=== PATIENT | female | born 1970 | race Caucasian/White ===

== ENCOUNTER 2017-01-02 15:59 | Emergency (ER) ==
[2017-01-02 16:04] VITALS: BP 164/104; TEMP 99.6; BMI 40.6
--- NOTE | 2017-01-02 16:24 | ED.PDOC ---
General ED Provider: Dr. DINORA DERAS JR Chief Complaint: Tooth Problem Stated Complaint: onset lower tooth pain 2 days ago--tried to get into dentist but schedule is full--has sl swelling to rt side of face. [ End ]99.2 112 20 96 % 164/104 10 Time Seen by Physician: 16:24 Mode of Arrival: Walk-In Information Source: Patient Exam Limitations: No limitations Primary Care Provider: ORVILLE HALEY Nursing and Triage Documentation Reviewed and Agree: No EENT Complaint Exam - Dental/Oral Complaint/Exam Mechanism of Injury: No known trauma Onset/Duration: 2d Symptoms Are: Worse Timing: Constant Initial Severity: Moderate Current Severity: Moderate Character: Reports: Aching, Throbbing Aggravating: Reports: Heat, Cold, Chewing, Exertion Alleviating: Reports: None Associated Signs and Symptoms: Reports: Swelling, Discharge, Foul odor, Foul taste in mouth Related History: Reports: Similar episode, Third molars present Tooth Findings: Present: Gross decay, Gross caries (right inferior molars and second premolar eroded on lingual surface with discherge, + swelling to mandible ) Cervical Lymphadenopathy Present: No Facial Swelling Present: Yes Bleeding Present: No Uvula Midline: Yes Trismus Present: No Review of Systems - Review Of Systems Constitutional: Reports: Fever, Malaise Eyes: Reports: No symptoms Ears, Nose, Mouth, Throat: Reports: Mouth pain Respiratory: Reports: No symptoms Cardiac: Reports: No symptoms GI: Reports: No symptoms : Reports: No symptoms Musculoskeletal: Reports: No symptoms Skin: Reports: No symptoms Neurological: Reports: No symptoms Endocrine: Reports: No symptoms Hematologic/Lymphatic: Reports: No symptoms All Other Systems: Other Past Medical History - Past Medical History Endocrine: Reports: None Cardiovascular: Reports: None Respiratory: Reports: PE (2013 left lung PE no knowm cause (2014) now off xarelto) Hematological: Reports: None Gastrointestinal: Reports: None Genitourinary: Reports: None Neuro/Psych: Reports: Seizure, Anxiety, Depression Musculoskeletal: Reports: None Cancer: Reports: None Last Menstrual Period: now Other Pertinent Past Medical History: v1D deff - Surgical History General Surgical History: Reports: (x2), Cholecystectomy, Other ( tumors removed from colon ), Unknown - Family History Family History: Reports: Unknown - Social History Smoking Status: Current every day smoker, Heavy tobacco smoker Hx Substance Use: No Alcohol Screening: None Physical Exam - Physical Exam Appearance: Ill-appearing, Obese Pain Distress: Moderate ENT: Ears normal, Nose normal Neck: Supple Respiratory: Airway patent, Breath sounds clear, Breath sounds equal, Respirations nonlabored Critical Care Note - Critical Care Note Total Time (mins): 0 Course - Course Vital Signs: Temp Pulse Resp BP Pulse Ox 01/02/17 15:59 99.6 F 112 H 20 164/104 H 96 Departure - Departure Time of Disposition: 16:52 Disposition: HOME SELF-CARE Discharge Problem: Dental abscess Instructions: Dental Abscess (ED) Condition: Fair Pt referred to PMD for follow-up: Yes (dentist) Additional Instructions: naprosyn (or advil or aleve for pain) beni VK antibiotic until gone may try dental wax on open tender area follow up with dentist as soon as possible call PMD in morning inform of er visit Prescriptions: Hydrocodone Bit/Acetaminophen [[place] 5-325] 1 - 2 tab PO Q6HR PRN #12 tablet PRN Reason: pain Naproxen [Naprosyn] 500 mg PO Q12HR PRN #30 tablet PRN Reason: PAIN Penicillin V Potassium 500 mg PO QID #28 tablet Allergies/Adverse Reactions: Allergies No Known Allergies Allergy (Verified 01/02/17 16:05) Home Medications: Ambulatory Orders Alprazolam [Xanax] 0.5 mg PO TID 01/23/14 Citalopram Hydrobromide [Citalopram HBr] 10 mg PO DAILY 01/23/14 Hydrochlorothiazide 12.5 mg PO DAILY 01/23/14 Rivaroxaban [Xarelto] 20 mg PO DAILY 01/23/14 Cyclobenzaprine HCl [Flexeril] 20 mg PO DAILY 01/02/17 Gabapentin 300 mg PO TID 01/02/17 Hydrocodone Bit/Acetaminophen [[place] 5-325] 1 - 2 tab PO Q6HR PRN #12 tablet Naproxen [Naprosyn] 500 mg PO Q12HR PRN #30 tablet 01/02/17 Penicillin V Potassium 500 mg PO QID #28 tablet 01/02/17
== END 2017-01-02 17:02 | disposition home or self-care (01) ==
LOC: ED 15:59
DX: K04.7 Periapical abscess without sinus (principal); K02.7 Dental root caries; F17.210 Nicotine dependence, cigarettes, uncomplicated
CPT/HCPCS: 99282

== ENCOUNTER 2017-01-19 10:07 | Outpatient (CLI) ==
[2017-01-19 10:23] LABS: BASOPHILS # (AUTO) 0.1 K/uL (0-0.2); BASOPHILS % (AUTO) 1.2 % (0.0-3.0); EOSINOPHILS # (AUTO) 0.1 K/ul (0.0-0.7); EOSINOPHILS % (AUTO) 1.3 % (0.0-7.0); HEMATOCRIT 40.5 % (37.0-47.0); HEMOGLOBIN 13.3 g/dl (12.0-16.0); IMMATURE GRANULOCYTE % (AUTO) 0.4 % (0.0-5.0); LYMPHOCYTES # (AUTO) 2.3 K/uL (0.60-3.4); LYMPHOCYTES % (AUTO) 26.7 (10.0-50.0); MEAN CORPUSCULAR HEMOGLOBIN 28.7 pg (27.0-31.0); MEAN CORPUSCULAR HGB CONC 32.8 (31.8-35.4); MEAN CORPUSCULAR VOLUME 87.3 fl (81.0-99.0); MONOCYTES # (AUTO) 0.4 K/uL (0.4-2.0); MONOCYTES % (AUTO) 4.9 (0-10); NEUTROPHILS # (AUTO) 5.6 K/ul (2.0-6.9); NEUTROPHILS % (AUTO) 65.5; PLATELET COUNT 347 10^3/uL (140-440); RED BLOOD COUNT 4.64 10^6/ul (4.20-5.40); WHITE BLOOD COUNT 8.53 K/ul (4.6-10.2)
[2017-01-19 11:06] LABS: ALBUMIN 3.3 g/dL (3.4-5.0); ALBUMIN/GLOBULIN RATIO 0.83; BILIRUBIN,TOTAL 0.43 mg/dL (0.00-1.20); BUN/CREATININE RATIO 11.68; CALCIUM 9.1 mg/dL (8.2-10.2); CREATININE 0.77 mg/dL (0.60-1.30); TOTAL PROTEIN 7.3 g/dL (6.4-8.2)
== END 2017-01-19 10:08 | disposition home or self-care (01) ==
LOC: LAB 10:07
PROVIDERS: ATTEND Emergency Medicine
DX: E78.5 Hyperlipidemia, unspecified (principal); E66.9 Obesity, unspecified; F41.1 Generalized anxiety disorder
CPT/HCPCS: 36415; 80053; 80061; 83036; 84443; 85025

== ENCOUNTER 2018-01-17 12:36 | Outpatient (CLI) | END 2018-01-17 12:37 | disposition home or self-care (01) | LOC: LAB 12:36 | PROVIDERS: ATTEND Internal Medicine | DX: E78.5 Hyperlipidemia, unspecified (principal); E66.9 Obesity, unspecified | CPT/HCPCS: 36415; 80053; 80061; 82306; 83036; 84443; 85025 ==

== ENCOUNTER 2018-04-11 10:00 | Outpatient (RCR) ==
--- NOTE | 2018-04-02 09:09 | RS.OPPTEV2 ---
Date of Note: 03/29/18 Visit #: 1 Date of Evaluation: 03/29/18 Payer Source: Medicaid Surgery Performed?: No Treatment Diagnosis: brachial plexus injury, cervical DDD, facet arthropathy, R shld pain History of Condition/Mechanism of Injury:: pt suffered injury at work at [employer] approx 2 yrs ago throwing a large bag of garbage over head and has been unable to work since. Prior Level of Function.....Patient was independent with: ADL's, Caregiving, Ambulation/Mobility, Community Integration/Access Functional Limitations: Sleep, Reaching, Pushing, Pulling, Lifting Current Subjective/complaints:: pt states that since her insurance has changed that is why they are requiring her to try therapy again. pt states she doesn't think the therapy will help. Treatment Side (optional): N/A *Precautions: n/a Medical History Medical History Comments:: brachial plexus injury Surgical History: Cholecystectomy, Smoking Status: Current every day smoker Diagnostic Testing/Imaging:: No new imaging results. Hx Home Medications: hydrocholorothiazide, xanax, flexaril, cymbalta, topamax Patient's Goals: decrease pain Pain Assessment - Pain Description Pain Location: cervical spine. R scapula/shld Current Pain Intensity: 6/10 Worst Pain Intensity: 8/10 Functional Outcome Measure Neck Disability Index: 25 (%) - G Codes & Severity Modifier G Codes & Modifier: n/a Source of G Code score: n/a Observation - Observation Posture: Forward Head, Rounded Shoulders, Increased Thoracic Kyphosis, Decreased Lumbar Lordosis Handedness: Right Gait - Gait Pattern General Gait Pattern Observation: No Deviations/Normal General Range of Motion: ROM BUE and BLE WFL's Muscle Strength: LUE 4+/5. BLE 5/5 - ROM Cervical Spine Range of Motion Limitations: Soft Tissue Tightness, Muscle Weakness, Pain Comments: ROM WFL's with pain, pain increases with R rotation and R lat bending. - Strength Comments: pt with increased pain with manual cervical traction with radicular symptoms RUE, pain also with cervical compression with radiation into RUE. - Special Tests Foraminal Distraction: Positive Foraminal Compression: Positive Right Shoulder ROM: Right WFL's - Right Shoulder Strength Right Shoulder Flexion: 4- Good- Right Shoulder Extension: 3+ Fair+ Right Shoulder Abduction: 4- Good- Right Shoulder Adduction: 4- Good- Right Shoulder External Rotation: 4- Good- - Special Tests Shoulder Speed's Sign Test: Positive Right Palpation Palpation Findings: Trigger Point (trigger points noted in R medial border and spine of scapula) Sensation - Sensation Right Upper Extremity: Intact/Normal Left Upper Extremity: Intact/Normal Right Lower Extremity: Intact/Normal Left Lower Extremity: Intact/Normal Balance - Sitting Balance Static Sitting Balance: Normal Dynamic Sitting Balance: Normal - Standing Balance Static Standing Balance: Normal Dynamic Standing Balance: Normal - Treatment Modality: Ultrasound Parameters/Method Applied: 1.5w/cm2 x 10 mins Treatment Area: R scapula and upper trap Patient Position: Sitting Interventions - Exercise/Activities/Manual Therapy Exercises/Activities: pt performed scapular retraction, corner stretches Manual Therapy: n/a HOME EXERCISE PROGRAM: pt given written HEP including corner stretches, shld shrugs, scapular retraction - Charges Timed Code Treatment Minutes: 47 Total Treatment Time: 60 Procedures billed for this date of service:: eval low, ultrasound EVALUATION COMPLEXITY LEVEL EVALUATION COMPLEXITY LEVEL: HISTORY: Low (brachial plexus injury, cervical DDD) , EXAM OF BODY SYSTEMS: Medium (pain, strength, ROM, posture), CLINICAL PRESENTATION: Low, CLINICAL DECISION MAKING: Medium Assessment Assessment: pt presents with cervical pain with radicular symptoms into RUE, pt also presents with scapular pain on R with trigger points as well as decreased scapular mobility due to muscle tightness and pain. Patient Education: Home Exercise Program, Education of Plan of Care Rehab Potential: Good Short Term Goals Goal #1: pt rate pain < 5/10 with activity Goal to be met by: 04/12/18 Goal #2: pt independent with intial HEP Goal to be met by: 04/12/18 Goal #3: pt with decreased pain with scapular ROM Goal to be met by: 04/12/18 Acetylene Plant Operator Goals Goal #1: pt rate pain <4/10 with activity, with decreased radicular symptoms Goal to be met by: 04/26/18 Goal #2: pt with report decreased difficulty with hammerer helper Goal to be met by: 04/26/18 Goal #3: pt report ability to perform ADL's without increased pain. Goal to be met by: 04/26/18 Goal #4: Cervical ROM WFL's with decreased pain Goal to be met by: 04/26/18 Plan - Treatment to be Provided Procedures: Therapeutic Exercises, Neuromuscular Rehab, Manual Therapy, Massage , Patient Education Modalities: Electrical Stimulation, Ultrasound/Phonophoresis, Class IV Laser, Cryotherapy, Hot Packs - Treatment Plan Frequency: 2 X week Duration: 6 weeks ORDER # VISITS AND/OR THROUGH DATE: 04/26/18 - Treatment Code (1) Brachial plexus injury, right Code(s): S14.3XXA - INJURY OF BRACHIAL PLEXUS, INITIAL ENCOUNTER Qualifiers: Encounter type: initial encounter Qualified Code(s): S14.3XXA - Injury of brachial plexus, initial encounter (2) Cervical pain Code(s): M54.2 - CERVICALGIA (3) Pain of right scapula Code(s): M89.8X1 - OTHER SPECIFIED DISORDERS OF BONE, SHOULDER (4) Muscle tightness Code(s): M62.89 - OTHER SPECIFIED DISORDERS OF MUSCLE
--- NOTE | 2018-04-02 11:41 | RS.CXNS ---
Date of scheduled appointment: 04/02/18 Type: No Show
--- NOTE | 2018-04-04 14:44 | RS.OPPTDN ---
Subjective Date of Note: 04/04/18 Visit #: 2 Date of Evaluation: 03/29/18 Payer Source: Medicaid Treatment Diagnosis: brachial plexus injury, cervical DDD, facet arthropathy, R shld pain Current Subjective/complaints:: Patient reports difficulty reaching with daily activities due to right scapular pain. *Precautions: n/a Pain Assessment - Pain Description Pain Location: Right scapular region and upper flank Current Pain Intensity: 5-6/10 - Treatment Modality: Ultrasound Parameters/Method Applied: [id number] at 1.5w/cm2 to the mid, distal, and lateral borders of the right scapula prior to EX. Patient Position: Sitting - Heat/Cryotherapy Treatment: Hot Pack ([id number] to the right scapula and shoulder prior to US. Patient in supine. ) Interventions - Exercise/Activities/Manual Therapy Exercises/Activities: Asssited mid scap stretch with UE across midline. Isometrics for right shoulder flex, add, and ext. AA flexion and abduction. Scapular retraction and shoulder shrugs. Total minutes of Exercise: 14mins Manual Therapy: n/a HOME EXERCISE PROGRAM: pt given written HEP including corner stretches, shld shrugs, scapular retraction. Right shoulder isometric add, ext, and flexion. - Charges Timed Code Treatment Minutes: 24mins Total Treatment Time: 44mins Procedures billed for this date of service:: HP, US, EX Assessment: Patient seem motivated to try HEP. She will need to progress isometrics before advancing to resistive strengthening. Patient Education: Body/Joint mechanics, Home Exercise Program Patient demonstrates compliance with HEP?: Yes Short Term Goals Goal #1: pt rate pain < 5/10 with activity Goal to be met by: 04/12/18 Goal #2: pt independent with intial HEP Goal to be met by: 04/12/18 Progress towards Goal:: Partially Met Goal #3: pt with decreased pain with scapular ROM Goal to be met by: 04/12/18 Mcc Goals Goal #1: pt rate pain <4/10 with activity, with decreased radicular symptoms Goal to be met by: 04/26/18 Goal #2: pt with report decreased difficulty with global safety officer Goal to be met by: 04/26/18 Goal #3: pt report ability to perform ADL's without increased pain. Goal to be met by: 04/26/18 Goal #4: Cervical ROM WFL's with decreased pain Goal to be met by: 04/26/18 Plan PLAN OF CARE EXPIRES ON:: 04/26/18 ORDER # VISITS AND/OR THROUGH DATE: 04/26/18 PLAN: Continue modalities and progress gentle exercsie to reduce pain and increase functional activity level with right UE.
--- NOTE | 2018-04-09 11:18 | RS.OPPTDN ---
Subjective Date of Note: 04/09/18 Visit #: 3 Date of Evaluation: 03/29/18 Payer Source: Medicaid Treatment Diagnosis: brachial plexus injury, cervical DDD, facet arthropathy, R shld pain Current Subjective/complaints:: Patient says she does not feel treatment is helping yet. Reports she has tried HEP. Rates pain 5/10 today and this is with taking pain meds prior to session today. *Precautions: n/a Pain Assessment - Pain Description Pain Location: R scapula - Treatment Modality: Ultrasound Parameters/Method Applied: continuous @ 1.5 w/cm2 x 12 mins to the R medial scap border and suprascapula Patient Position: Sitting - Heat/Cryotherapy Treatment: Hot Pack (R scapula and UT in supine x 15 mins) Interventions - Exercise/Activities/Manual Therapy Exercises/Activities: Asssited mid scap stretch with UE across midline. Isometrics for right shoulder flex, add, and ext. AA flexion and abduction. Scapular retraction and shoulder shrugs. Manual Therapy: n/a HOME EXERCISE PROGRAM: pt given written HEP including corner stretches, shld shrugs, scapular retraction. Right shoulder isometric add, ext, and flexion. - Charges Timed Code Treatment Minutes: 24 Total Treatment Time: 39 Procedures billed for this date of service:: hp, u/s, ex Assessment: Patient not experiencing consistent progress currently, but did explain we could modify treatment to u/s combo. She continues to have difficulty with cross over stretch or with any postural exercise. R shoulder passive motions have reproduced pain and has limited range. Patient Education: Education of diagnosis, Body/Joint mechanics, Home Exercise Program, Education of Plan of Care Patient demonstrates compliance with HEP?: Yes Short Term Goals Goal #1: pt rate pain < 5/10 with activity Goal to be met by: 04/12/18 Goal #2: pt independent with intial HEP Goal to be met by: 04/12/18 Progress towards Goal:: Partially Met Goal #3: pt with decreased pain with scapular ROM Goal to be met by: 04/12/18 Senior Care Goals Goal #1: pt rate pain <4/10 with activity, with decreased radicular symptoms Goal to be met by: 04/26/18 Goal #2: pt with report decreased difficulty with costing analyst Goal to be met by: 04/26/18 Goal #3: pt report ability to perform ADL's without increased pain. Goal to be met by: 04/26/18 Goal #4: Cervical ROM WFL's with decreased pain Goal to be met by: 04/26/18 Plan PLAN OF CARE EXPIRES ON:: 04/26/18 ORDER # VISITS AND/OR THROUGH DATE: 04/26/18 PLAN: patient to continue BIW for modalities and gentle exercise. May modify treatment to us combo if no change in symptoms.
--- NOTE | 2018-04-11 11:26 | RS.OPPTDN ---
Subjective Date of Note: 04/11/18 Visit #: 4 Date of Evaluation: 03/29/18 Payer Source: Medicaid Treatment Diagnosis: brachial plexus injury, cervical DDD, facet arthropathy, R shld pain Current Subjective/complaints:: Patient reports her right shoulder blade pain is aggravated today. States she did some laundry yesterday, but no increased activity out of her ordinary routine. *Precautions: n/a Pain Assessment - Pain Description Pain Location: Right mid traps, medial and distal scapular regions Pain Description: Aching Current Pain Intensity: 6-7/10 - Treatment Modality: Ultrasound Parameters/Method Applied: [id number] US at 1.5w/cm2 to the right traps and along all borders of the scapula prior to EX. Patient Position: Sitting - Heat/Cryotherapy Treatment: Hot Pack ([id number] to the right shoulder and scapula prior to US and EX. Patient in sitting. ) Interventions - Exercise/Activities/Manual Therapy Exercises/Activities: PROM of the right shoulder. Isometrics for right shoulder flex, add, and ext. AA flexion and abduction. Scapular retraction and shoulder shrugs. Reveiwed doorway stretches, codman's, and cervical ROM/gentle stretching. Total minutes of Exercise: 14mins Manual Therapy: n/a HOME EXERCISE PROGRAM: pt given written HEP including corner stretches, shld shrugs, scapular retraction. Right shoulder isometric add, ext, and flexion. - Objective Findings Observations,measurements,etc.: Patient continues to present guarded posture with ambulation in department. She is also guarded with PROM of the right shoulder. - Charges Timed Code Treatment Minutes: 26mins Total Treatment Time: 46mins Procedures billed for this date of service:: HP, US, EX Assessment: Patient reporting no significant improvement overall. Patient Education: Body/Joint mechanics, Home Exercise Program, Home Safety Patient demonstrates compliance with HEP?: Yes Short Term Goals Goal #1: pt rate pain < 5/10 with activity Goal to be met by: 04/12/18 Progress towards Goal:: No Change Goal #2: pt independent with intial HEP Goal to be met by: 04/12/18 Progress towards Goal:: Met Goal #3: pt with decreased pain with scapular ROM Goal to be met by: 04/12/18 Hydrocrane Operator Goals Goal #1: pt rate pain <4/10 with activity, with decreased radicular symptoms Goal to be met by: 04/26/18 Progress towards goal: No Change Goal #2: pt with report decreased difficulty with senior sales consultant Goal to be met by: 04/26/18 Progress towards goal: No Change Goal #3: pt report ability to perform ADL's without increased pain. Goal to be met by: 04/26/18 Progress towards goal: No Change Goal #4: Cervical ROM WFL's with decreased pain Goal to be met by: 04/26/18 Plan PLAN OF CARE EXPIRES ON:: 04/26/18 ORDER # VISITS AND/OR THROUGH DATE: 04/26/18 PLAN: Will continue next week in attempt to reduce pain and increase patients functional activity level. If no improvement seen, patient will be referred back to physician for further assessment.
--- NOTE | 2018-04-16 15:20 | RS.CXNS ---
Date of scheduled appointment: 04/16/18 Type: No Show
--- NOTE | 2018-04-18 16:28 | RS.CXNS ---
Date of scheduled appointment: 04/18/18 Type: No Show
--- NOTE | 2018-04-18 16:30 | RS.QUICKDC ---
Discharge from PT Date of Discharge: 04/18/18 Number of Visits: 4 Reason for Discharge: Patient attended first 4 sessions. She reported little to no change in pain in the right scapular region. The patient no-showed her last 2 appointments and has not rescheduled. Discharge due to lack of attendance.
== END 2018-04-18 23:59 ==
PROVIDERS: ATTEND Pain Medicine Interventional Pain Medicine
DX: S14.3XXA Injury of brachial plexus, initial encounter (principal); M54.2 Cervicalgia; M25.511 Pain in right shoulder; M46.92 Unspecified inflammatory spondylopathy, cervical region; M50.30 Other cervical disc degeneration, unspecified cervical region; M89.8X1 Other specified disorders of bone, shoulder; M62.89 Other specified disorders of muscle

== ENCOUNTER 2018-06-20 14:42 | Emergency (ER) ==
[2018-06-20 14:47] VITALS: BP 131/91; TEMP 99.1; BMI 29.2
[2018-06-20] MEDS ORDERED: TORADOL IM STA (15:01)
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
== END 2018-06-20 15:45 | disposition home or self-care (01) ==
LOC: ED 14:42
DX: M54.5 Low back pain (principal); M25.512 Pain in left shoulder; S46.002A Unspecified injury of muscle(s) and tendon(s) of the rotator cuff of left shoulder, initial encounter; V86.99XA Unspecified occupant of other special all-terrain or other off-road motor vehicle injured in nontraffic accident, initial encounter
CPT/HCPCS: 96372; 99283

== ENCOUNTER → 2018-06-28 | Emergency (ER) ==
[2018-06-20 14:47] VITALS: BMI 29.2
[~2018-06-28] MED LIST: DILAUDID 2 MG/ML SYRINGE ONE; ZOFRAN ODT ONE
--- NOTE | 2018-06-28 08:06 | DI ---
EXAM: Radiographs, left clavicle HISTORY: Initial presentation for left clavicular injury. COMPARISON: None available. TECHNIQUE: Two views. FINDINGS/IMPRESSION: Mildly displaced fracture of the mid shaft of the left clavicle noted with moderate inferior displace ment of the major distal fracture fragment. No sternoclavicular or acromioclavicular dislocation radha ntified.
== END ==
LOC: ED 03:45
DX: S42.002A Fracture of unspecified part of left clavicle, initial encounter for closed fracture (principal); V86.99XA Unspecified occupant of other special all-terrain or other off-road motor vehicle injured in nontraffic accident, initial encounter; F17.210 Nicotine dependence, cigarettes, uncomplicated
CPT/HCPCS: 96372; 99282

== ENCOUNTER 2018-07-15 10:49 | Outpatient (CLI) ==
--- NOTE | 2018-07-15 21:15 | MRI ---
EXAM: Thoracic spine MRI without contrast. HISTORY: Back pain. COMPARISON: Thoracic spine MRI 07/06/2016. TECHNIQUE: Multiplanar, multisequence MR images were acquired of the thoracic spine without contrast . FINDINGS: There is visualization of the central canal from the craniocervical junction to mid T6 whe re there is a syrinx that extends 6 cm from mid T6 to T7-8 where it is compressed and from T7-8 to T8 -9. This has increased in size and extent compared to the previous MRI and now measures a maximum at T7 of 2 mm AP by 3 mm TX compared to 1.5 mm AP by 2 mm TX with an extent of 4.1 cm in length. Canal d iameter is developmentally narrow and there is prominent dorsal epidural fat from T4-T10. 12 rib-dottie ring thoracic vertebra are present. The thoracic vertebra normal in height, AP alignment and intrins ic bone marrow signal. There is mild chronic anterior wedging of in the mid thoracic vertebra. Sma ll ventral and lateral osteophytes are present in the mid thoracic spine and there is disc desiccatio n from T1-2 through T10-11 and mild endplate irregularity with disc desiccation and disc space narrow ing at T7-8 and T8-9 chronic Schmorl's nodes at T8, T10 and T11. Benign intraosseous hemangiomas are present at T11, T12 and L1. The partially visualized liver, spleen and right kidney are unremarkable. There are no paravertebral masses. There is a partially visualized slightly triangular shaped 4.3 mm T2 hyperintensity in the right lobe of the thyroid gland that may represent a cyst or adenoma. Small perineural cysts are pre sent in the thoracic spine. A small simple left renal cyst is present. T1-2: T1-2, T2-3: The intervertebral discs are normal. There is no central canal stenosis or [place] inal stenosis. T3-4: The intervertebral disc is normal. Right greater than left hypertrophic facet arthropathy is present which causes mild to moderate right neural foraminal stenosis which is better shown on the pr esent exam. There is no central canal stenosis. T4-5: The intervertebral disc is normal. Bilateral hypertrophic facet arthropathy is present, great er on the right and moderate right neural foraminal stenosis. There is no central canal stenosis. T5-6: The intervertebral disc is normal. Bilateral hypertrophic facet arthropathy and mild to promp t dorsal epidural fat is present. There is mild left and severe right neural foraminal stenosis. Th ere is no central canal stenosis. T6-7: There is a minor dorsal spondylotic ridge that is asymmetric to the right and bilateral hypert rophic facet arthropathy and ligamentum flavum hypertrophy, greater on the left. There is prominent dorsal epidural fat and these findings cause mild spinal stenosis and moderate right and severe left neural foraminal stenosis. AP diameter of the thecal sac is 8.7 mm. T7-8: There is a minor dorsal spondylotic ridge and a moderate central and right paracentral disc ex trusion with extension above and below the disc level. This compresses the right ventral cord. Prom inent dorsal epidural fat and left greater than right hypertrophic facet arthropathy and ligamentum f lavum hypertrophy is present. This causes mild compression of the thoracic cord with mild to moderat e central canal stenosis and mild to moderate right and severe left neural foraminal stenosis. AP di ameter of the thecal sac is 6.6 mm. T8-9: There is a mild disc bulge and small right paracentral disc extrusion with proximal migration. There is prominent dorsal epidural fat and there is mild spinal stenosis and moderate bilateral neur al foraminal stenosis. AP diameter of the thecal sac is 8.6 mm. T9-10: The intervertebral disc is normal. Bilateral facet ligamentum flavum hypertrophy is present with mild to moderate right and moderate left neural foraminal stenosis. T10-11: The intervertebral disc is normal. Left greater than right bilateral facet and ligamentum f lavum hypertrophy is present. There is mild to moderate bilateral neural foraminal stenosis. T11-12: The intervertebral disc is normal. There is mild right neural foraminal stenosis. T12-L1: The intervertebral disc is normal. IMPRESSION: 1. No change moderate central and right paracentral disc extrusion at T7-8 that moderately indents t he thoracic cord and is associated with a syrinx that extends from T6 level to T7-8 and from T7-8 to T8-9. 2. Unexpected result. Mildly increased thoracic cord syrinx which now measures a maximum of 2 mm AP by 3 mm TX and extends for 6 cm in length compared to 1.5 mm AP by 2 mm TX by 4.1 cm in length on . 3. Improved small right paracentral disc extrusion T8-9. 4. Moderate thoracic degenerative spondylosis which in combination with dorsal epidural lipomatosis causes mild T6-7 and T8-9 and mild to moderate T7-8 central canal stenosis. 5. Multilevel foraminal stenosis.
== END 2018-07-15 10:50 | disposition home or self-care (01) ==
LOC: RAD 10:49
PROVIDERS: ATTEND Internal Medicine
DX: M54.9 Dorsalgia, unspecified (principal)

== ENCOUNTER 2018-07-16 10:05 | Outpatient (CLI) ==
--- NOTE | 2018-07-17 08:58 | MRI ---
EXAM: Lumbar spine MRI without contrast. HISTORY: Back pain. Injury. COMPARISON: None. TECHNIQUE: Multiplanar, multisequence MR images were acquired of the lumbar spine without contrast. FINDINGS: Conus medullaris ends at L1-2 and has normal morphology and signal intensity. There is mi nor thoracolumbar levoscoliosis centered at L2-3 that may be positional. There is a trace anterolist hesis of L4 on L5 and mild disc space narrowing disc desiccation at this level. There is minor lumba r ventral spondylosis. The lumbar vertebra are normal in height and intrinsic bone marrow signal. B enign intraosseous hemangiomas are present from T11-L1 and at S2. The partially visualized liver and left kidney are unremarkable. There is a probable partially visua lized lower pole right renal parapelvic cyst. There is a partially visualized dominant follicle in t he left ovary that measures at least 1.7 cm x 2.3 cm and there is a complex cystic lesion in the righ t ovary that measures at least 2.8 cm x 3 cm. L1-2: The intervertebral disc is normal. L2-3: The intervertebral disc is normal. There is mild left greater than right hypertrophic facet a rthropathy. There is no central canal stenosis or foraminal stenosis. L3-4: The intervertebral disc is normal. There is mild to moderate bilateral hypertrophic facet art hropathy and ligamentum flavum hypertrophy. There is minor left neural foraminal stenosis. L4-5: There is a mild disc bulge and small central disc extrusion that is slightly asymmetric to the left with inferior migration. This minimally effaces the ventral thecal sac. Mild to moderate bilat eral facet arthropathy and ligamentum flavum hypertrophy is present. There is minor central canal st enosis, left lateral recess stenosis with encroachment on the left L5 nerve roots and mild right and mild to moderate left neural foraminal stenosis. AP diameter of the thecal sac is 9.5 mm. L5-S1: The intervertebral disc is normal. There is mild to moderate left greater than right hypertr ophic facet arthropathy and ligamentum flavum hypertrophy. There is no central canal stenosis or for aminal stenosis. IMPRESSION: 1. Small central disc extrusion L4-5 that is slightly asymmetric to the left which narrows the left lateral recess and may adversely contact the ventral left L5 nerve root. 2. 2.8 cm x 3 cm complex cystic lesion right ovary. Pelvic ultrasound is advised to better define t he anatomy.
== END 2018-07-16 10:06 | disposition home or self-care (01) ==
LOC: RAD 10:05
PROVIDERS: ATTEND Internal Medicine
DX: M54.9 Dorsalgia, unspecified (principal)

== ENCOUNTER 2018-10-08 09:22 | Outpatient (CLI) | END 2018-10-08 09:23 | disposition home or self-care (01) | LOC: LAB 09:22 | PROVIDERS: ATTEND Internal Medicine | DX: E78.5 Hyperlipidemia, unspecified (principal); E55.9 Vitamin D deficiency, unspecified; M19.90 Unspecified osteoarthritis, unspecified site | CPT/HCPCS: 36415; 80053; 80061; 83036; 84443; 85025 ==

== ENCOUNTER 2019-01-29 19:37 | Emergency (ER) ==
[2019-01-29 19:42] VITALS: BP 158/102; TEMP 99; BMI 34.1
--- NOTE | 2019-01-29 20:04 | ED.PDOC ---
General ED Provider: Dr. GILBERTO MCBRIDE Chief Complaint: Abdominal Pain Stated Complaint: Patient is a 48 year old female who comes to the ER with a 2 day history of RIght lower quadrant pain that has gotten worse. Rates the pain at 7/10 Time Seen by Physician: 20:02 Mode of Arrival: Walk-In Information Source: Patient Exam Limitations: No limitations Primary Care Provider: ORVILLE HALEY Nursing and Triage Documentation Reviewed and Agree: Yes Does patient meet sepsis criteria?: No System Inflammatory Response Syndrome: Not Applicable Sepsis Protocol: For patient's 13 years and over: Temp is 96.8 and below OR 101 and greater Pulse >90 BPM Resp >20/minute Acutely Altered Mental Status Are patient's symptoms suggestive of a new infection, such as: -Pneumonia -Skin, Soft Tissue -Endocarditis -UTI -Bone, Joint Infection -Implantable Device -Acute Abdominal Infection -Wound Infection -Meningitis -Blood Stream Catheter Infection -Unknown Review of Systems - Review Of Systems Constitutional: Reports: No symptoms Eyes: Reports: No symptoms Ears, Nose, Mouth, Throat: Reports: No symptoms Respiratory: Reports: No symptoms Cardiac: Reports: No symptoms GI: Reports: Abdominal pain, Nausea. Denies: Vomiting : Reports: No symptoms Musculoskeletal: Reports: No symptoms Skin: Reports: No symptoms Neurological: Reports: No symptoms Endocrine: Reports: No symptoms Hematologic/Lymphatic: Reports: No symptoms All Other Systems: Reviewed and Negative Past Medical History - Past Medical History Previously Healthy: Yes Endocrine: Reports: None Cardiovascular: Reports: None Respiratory: Reports: PE (2014 left lung PE no knowm cause (2014) now off xarelto) Hematological: Reports: None Gastrointestinal: Reports: None Genitourinary: Reports: None Neuro/Psych: Reports: Seizure, Anxiety, Depression Musculoskeletal: Reports: None Cancer: Reports: None Last Menstrual Period: none Other Pertinent Past Medical History: v1D deff - Surgical History General Surgical History: Reports: (x2), Cholecystectomy, Other ( tumors removed from colon ), Unknown - Family History Family History: Reports: Unknown - Social History Smoking Status: Current every day smoker, Heavy tobacco smoker Hx Substance Use: No Alcohol Screening: None Physical Exam - Physical Exam Appearance: Ill-appearing Ill-appearing: Moderate Pain Distress: Severe Neck: Supple Respiratory: Airway patent, Breath sounds clear, Breath sounds equal, Respirations nonlabored Cardiovascular: RRR, Pulses normal, No rub, No murmur GI/: Soft, Tender (right loqer quadrant ) Musculoskeletal: Normal strength, ROM intact, No edema, No calf tenderness Skin: Warm Neurological: Sensation intact, Motor intact, Reflexes intact, Cranial nerves intact, Alert, Oriented Psychiatric: Anxious Interpretation - Radiology Interpretation Radiology Interpretation By: Radiologist Radiology Results: Positive (fecal statis) Exam Interpreted: CT Scan Critical Care Note - Critical Care Note Total Time (mins): 0 Course - Course Hematology/Chemistry: 01/29/19 20:09 01/29/19 20:09 Orders, Labs, Meds: Lab Review 01/29/19 01/29/19 01/29/19 20:09 20:09 20:09 WBC 8.02 RBC 4.46 Hgb 13.0 Hct 39.9 MCV 89.5 MCH 29.1 MCHC 32.6 RDW Coeff of Yue 15.5 H Plt Count 292 Immature Gran % (Auto) 0.2 Neut % (Auto) 63.5 Lymph % (Auto) 29.3 [place] % (Auto) 4.5 Eos % (Auto) 1.6 Baso % (Auto) 0.9 Immature Gran # (Auto) 0.0 Neut # (Auto) 5.1 Lymph # (Auto) 2.4 [place] # (Auto) 0.4 Eos # (Auto) 0.1 Baso # (Auto) 0.1 Sodium 140.1 Potassium 4.11 Chloride 108.3 H Carbon Dioxide 24.6 Anion Gap 11.31 BUN 10.9 Creatinine 0.73 Estimated GFR (MDRD) 86.00 BUN/Creatinine Ratio 14.93 Glucose 93.7 Calcium 9.75 Total Bilirubin 0.33 AST 28.8 ALT 17.2 Alkaline Phosphatase 102.9 Total Protein 7.75 Albumin 4.20 Globulin 3.55 Albumin/Globulin Ratio 1.18 Amylase 123.2 H Lipase 385.6 H Urine Color Yellow Urine Clarity Slightly Urine pH 7.5 Ur Specific [place] 1.015 Urine Protein Negative Urine Glucose (UA) Negative Urine Ketones Negative Urine Blood Trace-lysed Urine Nitrite Negative Urine Bilirubin Negative Urine Urobilinogen 0.2 Ur Leukocyte Esterase 1+ Urine Microscopic RBC 2-5 Urine Microscopic WBC 5-10 Ur Squamous Epith Cells 2-5 Ur Transition Epith Cell 2-5 Amorphous Sediment 1+ Urine Bacteria Trace Orders Category Date Time Status AMYLASE Stat LAB 01/29/19 20:09 Completed CBC W/ AUTO DIFF Stat LAB 01/29/19 20:09 Completed COMPREHENSIVE METABOLIC PANEL Stat LAB 01/29/19 20:09 Completed LIPASE Stat LAB 01/29/19 20:09 Completed URINALYSIS C & S IF INDICATED Stat LAB 01/29/19 20:09 Completed URINE CULTURE Stat LAB 01/29/19 20:09 Received Hydromorphone HCl [Dilaudid 1 mg/ml Syringe] MEDS 01/29/19 21:14 Discontinued 1 mg IVP ONCE STA Ketorolac Tromethamine [Toradol] MEDS 01/29/19 20:18 Discontinued 30 mg .ROUTE .STK-MED ONE Ketorolac Tromethamine [Toradol] MEDS 01/29/19 20:01 Discontinued 30 mg IVP ONCE STA Ondansetron HCl/Pf [Zofran 4 mg/2 ml] MEDS 01/29/19 20:18 Discontinued 4 mg .ROUTE .STK-MED ONE Ondansetron HCl/Pf [Zofran 4 mg/2 ml] MEDS 01/29/19 20:00 Discontinued 4 mg IVP ONCE STA Ringers Lactated Solution [Lactated Ringers] 1,000 ml MEDS 01/29/19 20:[address] ABD/PEL WO RENAL STONE PROT Stat RADS 01/29/19 20:00 Completed Medications Discontinued Medications Generic Name Dose Route Start Last Admin Trade Name Freq PRN Reason Stop Dose Admin Hydromorphone HCl 1 mg 01/29/19 21:14 01/29/19 21:20 Dilaudid 1 Mg/Ml Syringe IVP 01/29/19 21:15 1 mg ONCE STA Administration Lactated Ringer's 1,000 mls @ 1,000 mls/hr 01/29/19 20:00 01/29/19 20:24 Lactated Ringers IV 01/29/19 20:59 1,000 mls/hr BOLUS STA Administration Ketorolac Tromethamine 30 mg 01/29/19 20:01 01/29/19 20:23 Toradol IVP 01/29/19 20:02 30 mg ONCE STA Administration Ondansetron HCl 4 mg 01/29/19 20:00 01/29/19 20:23 Zofran 4 Mg/2 Ml IVP 01/29/19 20:01 4 mg ONCE STA Administration Vital Signs: Temp Pulse Resp BP Pulse Ox 03/13/19 19:38 99.0 F 96 H 20 158/102 H 94 L Departure - Departure Time of Disposition: 21:38 Disposition: HOME SELF-CARE Discharge Problem: Constipation Qualifiers: Constipation type: slow transit constipation Qualified Code(s): K59.01 - Slow transit constipation Instructions: Constipation (ED) Condition: Stable Pt referred to PMD for follow-up: Yes IPMP verified?: No Additional Instructions: Push fluids Follow up with PCP In 3 days Prescriptions: Polyethylene Glycol 3350 [Clearlax] 17 gm PO DAILY #450 powd.pack Allergies/Adverse Reactions: Allergies morphine Adverse Reaction (Severe, Verified 01/29/19 19:41) Vomiting PATIENT STATES THAT SHE ALSO HAS HALLUCINATIONS Home Medications: Ambulatory Orders Alprazolam [Xanax] 0.5 mg PO TID 01/23/14 Citalopram Hydrobromide [Citalopram HBr] 10 mg PO DAILY 01/23/14 Hydrochlorothiazide 12.5 mg PO DAILY 01/23/14 Polyethylene Glycol 3350 [Clearlax] 17 gm PO DAILY #450 powd.pack 01/29/19 Disposition Discussed With: Patient
[2019-01-29] MEDS: ZOFRAN 4 MG/2 ML ONE (20:23)
[2019-01-29] MEDS: TORADOL IVP STA (20:23)
[2019-01-29] MEDS: ZOFRAN 4 MG/2 ML IVP STA (20:23)
[2019-01-29] MEDS: TORADOL ONE (20:23)
[2019-01-29] MEDS: LACTATED RINGERS 1,000 ML IV STA (20:24)
[2019-01-29] MEDS: DILAUDID 1 MG/ML SYRINGE IVP STA (21:20)
--- NOTE | 2019-01-29 21:34 | CT ---
EXAM: CT of the abdomen and pelvis without contrast. HISTORY: Right lower quadrant pain. PROCEDURE: Contiguous axial CT images of the abdomen and pelvis without contrast with coronal and sa gittal reformats. FINDINGS: Comparison made with CT 01/08/2013. The liver is normal in appearance. The gallbladder is surgically absent. The pancreas, spleen, adrenal glands and left kidney are normal in appearance. There is a fluid density cyst in the right kidney. The abdominal aorta is within normal limits in di ameter. The appendix is normal in appearance. There is fecal stasis in the colon. There is a moder ate amount of air in the colon which measures up to 4.5 cm in diameter. There is a redundant sigmoid colon. The distal sigmoid colon is decompressed. No bowel obstruction. No free fluid or free air in the abdomen or pelvis. The bladder is minimally filled which limits the evaluation. There are de generative changes in the spine. The soft tissues are unremarkable. Impression: Nonspecific nonobstructive bowel gas pattern as described. Fecal stasis in the colon. Normal appendix. Cholecystectomy.
== END 2019-01-29 21:54 | disposition home or self-care (01) ==
LOC: ED 19:37
DX: R10.31 Right lower quadrant pain (principal); R11.0 Nausea; K59.01 Slow transit constipation
CPT/HCPCS: 36415; 74176; 80053; 81001; 82150; 83690; 85025; 87086; 96361; 96374; 96375; 99283

== ENCOUNTER 2019-01-31 12:48 | Outpatient (CLI) | END 2019-01-31 12:49 | disposition home or self-care (01) | LOC: LAB 12:48 | PROVIDERS: ATTEND Internal Medicine | DX: R10.9 Unspecified abdominal pain (principal) | CPT/HCPCS: 36415; 80053; 82150; 83690; 85025 ==

== ENCOUNTER 2019-02-11 08:31 | Outpatient (CLI) ==
--- NOTE | 2019-02-11 15:31 | US ---
Exam: Retroperitoneal ultrasound HISTORY: Right renal cyst. Procedures: Transverse and longitudinal real time hernandez scale echograms and color Doppler images of t yessenia retroperitoneum were obtained. Comparison: CT abdomen and pelvis without contrast 01/29/[address] abdomen and pelvis with contra st 01/08/2013. FINDINGS: The right kidney is 11.8 cm in length. The left kidney is 10 cm in length. In the lower pole of the right kidney is a 3 cm x 2.3 cm x 4 cm simple appearing cyst. There is no echogenic moose l stone, hydronephrosis or apparent renal mass. The urinary bladder is nondistended and cannot be ev aluated. There is no free fluid in the retroperitoneum. IMPRESSION: No hydronephrosis or acute process on this retroperitoneal ultrasound. 3 cm x 2.3 cm x 4 cm simple appearing cyst at the lower pole of the right kidney.
== END 2019-02-11 08:32 | disposition home or self-care (01) ==
LOC: RAD 08:31
PROVIDERS: ATTEND Internal Medicine
DX: N28.1 Cyst of kidney, acquired (principal)

== ENCOUNTER 2019-07-16 08:03 | Outpatient (CLI) ==
--- NOTE | 2019-07-16 08:47 | MAMMO ---
EXAM: Left digital diagnostic mammogram (2-D and 3-D) History: Left breast pain. Comparison: Bilateral mammogram 05/28/2019 Findings: MLO and CC views of the left breast demonstrate scattered fibroglandular breast parenchyma . There is a small nodule at 12 o'clock middle depth. No suspicious microcalcifications and no arch itectural distortions Impression: Small indeterminate nodule at 12 o'clock middle depth. Recommend further evaluation wit h ultrasound. BI-RADS 0, incomplete. Further evaluation is needed
--- NOTE | 2019-07-16 09:09 | US ---
EXAM: Left breast ultrasound. History: Left breast mass. Comparison: Left digital diagnostic mammogram 07/16/2019 Technique: Multiple sonographic images through the left breast were obtained. Color duplex Doppler was used to interrogate vascular flow. Findings: At 9 o'clock 2 cm from nipple anterior depth there is a 1 cm x 0.5 cm x 0.8 cm cyst or dilated duct w hich is anechoic and demonstrates posterior acoustic enhancement. There are no suspicious masses. N o abscess is seen. Impression: A benign cyst or dilated duct within the anterior left breast. Recommend return to [facility] screening mammography schedule. BI-RADS 2, benign
== END 2019-07-16 08:04 | disposition home or self-care (01) ==
LOC: RAD 08:03
PROVIDERS: ATTEND Internal Medicine
DX: N63.0 Unspecified lump in unspecified breast (principal); E78.5 Hyperlipidemia, unspecified; E66.9 Obesity, unspecified; R53.83 Other fatigue; E55.9 Vitamin D deficiency, unspecified; Z86.711 Personal history of pulmonary embolism
CPT/HCPCS: 36415; 80053; 80061; 83036; 84439; 84443; 85025